=== PATIENT | male | born 1960 | race Caucasian/White ===

== ENCOUNTER → 2017-12-21 16:46 | Outpatient (CLI) | payer OTHER, SELFPAY ==
--- NOTE | 2017-12-21 16:56 | RAD_ITS ---
STUDY: X-RAY - PELVIS AND LEFT HIP REASON FOR EXAM: Chronic pain. TECHNIQUE: Radiological exam, hip, unilateral, with pelvis when performed; 2 or 3 views. COMPARISON: None. FINDINGS: Normal visualized soft tissue structures. Normal bilateral iliac wings, sacroiliac joints and visualized sacrum. Normal bilateral superior and inferior pubic rami. Normal pubic symphysis. Normal bilateral ischial tuberosities. There is advanced left hip arthrosis with marginal osteophytes, joint space loss and subchondral cystic change of the femoral head. RAD/HIP, UNI W/ Pelvis 2-3 Views IMPRESSION: Advanced left hip arthrosis. Electronically Signed: Armando Kramer MD at 8:40 EDT Tel , Service support ,
--- NOTE | 2017-12-21 16:56 | RAD_ITS ---
STUDY: X-RAY - RIGHT KNEE REASON FOR EXAM: Male, 57 years old. Pain TECHNIQUE: 4 view(s) of the knee. COMPARISON: None. FINDINGS: There is moderate osteoarthritis of the knee demonstrated by narrowing of the tricompartments and spurs from the tibial and femoral condyles. There are also spurs from the margins of the patella. There is a small amount of knee joint effusion by the quadriceps and patellar tendons are normal. No fracture RAD/Knee 4 or More Views IMPRESSION: Moderate osteoarthritis of the right knee. No fracture Electronically Signed: Geoffrey Correa, at 4:31 EDT Tel , Service support ,
== END ==
PROVIDERS: Family Provider Family Medicine; PCP Family Medicine; Visit Provider Family Medicine
DX: M25.561 Pain in right knee (principal); M25.552 Pain in left hip
CPT/HCPCS: 73502; 73564

== ENCOUNTER → 2017-12-29 07:30 | Outpatient (CLI) | payer OTHER, SELFPAY ==
[2017-12-29 10:55] LABS: Anion Gap 12 (5-15); BUN 26 mg/dL (7-18); BUN/Creat Ratio 22.4 RATIO (10-20); Calcium,Total 8.9 mg/dL (8.5-10.1); Chloride 107 mmol/L (98-107); Cholesterol 197 mg/dL (200); Creatinine, Serum 1.16 mg/dL (0.70-1.30); EST Glomerular Filtration Rate 69 mL/min (>60); Est Glom Filt Rate - Afr Amer 84 mL/min (>60); Glucose 80 mg/dL (74-106); High Density Lipoprotein 59 mg/dL; PSA,Total - Annual Screen 1.01 ng/mL (0.00-4.00); Potassium 4.2 mmol/L (3.5-5.1); Sodium Level 143 mmol/L (136-145); Triglycerides 85 mg/dL; Very Low Density Lipoprotein 17 mg/dL (5-40)
== END ==
PROVIDERS: Family Provider Family Medicine; PCP Family Medicine; Visit Provider Family Medicine
DX: Z13.1 Encounter for screening for diabetes mellitus (principal); Z13.220 Encounter for screening for lipoid disorders; Z12.5 Encounter for screening for malignant neoplasm of prostate
CPT/HCPCS: 36415; 80048; 80061; 84153; G0103

== ENCOUNTER 2018-04-20 05:26 | Day surgery (SDC) | payer OTHER, SELFPAY ==
[2018-04-04 15:03] VITALS: BP 130/86; PULSE 55; RESP 16; TEMP 36.6; O2SAT 96; BMI 27.8
--- NOTE | 2018-04-04 15:17 | SDCEKG_ITS ---
Test Reason : Blood Pressure : / mmHG Vent. Rate : 054 BPM Atrial Rate : 054 BPM P-R Int : 178 ms QRS Dur : 090 ms QT Int : 448 ms P-R-T Axes : 038 026 033 degrees QTc Int : 424 ms Sinus bradycardia Otherwise normal ECG Confirmed by CHIVO BUTTS, FLORENTINO ([id number]), book or script editor ANN JACKSON ([id number]) on 04/06/2018 1:13:17 PM Referred By: Los Sosa Confirmed By:FLORENTINO WALDRON MD
[2018-04-04 15:46] LABS: Absolute Lymphocyte Count 1.96 X10^3/ul (0.83-4.51); Absolute Neutrophil Count 3.6 X10^3/uL (2.0-7.7); Basophil# 0.06 X10^3/uL; Eosinophil# 0.11 X10^3/uL; Eosinophils% 1.8 % (0-5); Hematocrit 43.9 % (40-54); Hemoglobin 14.6 g/dl (13.0-16.5); Lymphocyte # 1.96 X10^3/ul (4.0); Lymphocyte % 32.6 % (19-41); Mean Corp Hgb Conc 33.3 g/gl (32-36); Mean Corpuscular Hgb 30.4 pg (27.0-32.0); Mean Corpuscular Volume 91.3 fL (80-94); Mean Platelet Vol. 10.5 fl (6.2-12.0); Monocyte# 0.31 X10^3/uL; Monocyte% 5.1 % (0-10); Neutrophil # 3.58 X10^3/uL (2.7-7.7); Neutrophil % 59.5 % (47-70); Platelet Count 185 K/mm3 (150-450); RBC Distribution Width CV 12.8 % (11.6-14.6); RBC Distribution Width SD 42.9 fl (35.1-43.9); Red Blood Count 4.81 M/mm3 (4.6-6.2)
[2018-04-04 15:47] LABS: POSITIVE COUNT NO; POSITIVE DIFFERENTIAL NO; POSITIVE MORPHOLOGY NO
[2018-04-04 16:06] LABS: Anion Gap 6 (5-15); BUN 27 mg/dL (7-18); BUN/Creat Ratio 25.5 RATIO (10-20); Calcium,Total 8.7 mg/dL (8.5-10.1); Chloride 107 mmol/L (98-107); Creatinine, Serum 1.06 mg/dL (0.70-1.30); EST Glomerular Filtration Rate 77 mL/min (>60); Est Glom Filt Rate - Afr Amer 93 mL/min (>60); Estimated Creatinine Clearance 83.86 ml/min; Glucose 77 mg/dL (74-106); Potassium 3.8 mmol/L (3.5-5.1); Sodium Level 137 mmol/L (136-145)
--- NOTE | 2018-04-06 10:14 | PCM.HP.BLA ---
History and Physical DATE OF SURGERY: 04/20/2018 SCHEDULED PROCEDURE: Left Total Hip Arthroplasty HISTORY OF PRESENT ILLNESS: This is a 57-year-old male who has been having ongoing pain in bilateral hips for over 2 years. Patient states the left is worse than the right. Patient states the pain can reach as high as a 6/10. Pain is increased going up and down stairs, walking any amount of distance. Patient does have start up pain and complains of pain in the left groin and thigh. Patient states he has had a difficult time with activities of daily living including housework, shopping, and leisure activities such as hiking. Patient has tried conservative measures consisting of rest, ice, heat, elevation with no relief in symptoms. Patient has been through formal physical therapy and home exercises with no relief in symptoms. Patient has tried oral medications consisting of ibuprofen which states it helps temporarily. Patient currently denies any chest pain, shortness of breath, fevers chills, recent infections. We are obtaining surgical clearance from patient's primary care physician. After failing conservative measures and discussing all treatment options with Dr. Los Sosa, the patient would like to proceed with a left total hip arthroplasty. REVIEW OF SYSTEMS: ROS: Const: Denies change in appetite, fever and weight change. CV: Denies chest pain, heart murmur and irregular heartbeat. Resp: Denies cough, pneumonia, shortness of breath, tuberculosis and wheezing. GI: Denies constipation, diarrhea, heartburn, nausea, rectal itching, bloody stools and vomiting. : Denies incontinence. Musculo: Reports ambulatory dysfunction and trouble walking, but denies leg swelling, pain and weakness. Skin: Denies Raynaud's, history of shingles and tattoo. Neuro: Denies ambulatory dysfunction, dizziness, numbness/tingling and tremor. Psych: Denies anxiety, insomnia and stress. Tino/Lymph: Denies anemia, bleeding/bruising tendency and past transfusion. Reviewed, no changes. PAST MEDICAL HISTORY: Advance Care Plan: No Advance Directives Effective Date: 01/24/2018 PMH: Medical Problems: No Current Problems Accidents: None Surgical Hx: Knee Arthroscopy Rt - (1978) [facility] Anesthesia Complications: None Assistive Devices: Glasses Reviewed, no changes. 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 Personal Habits: Cigarette Use: Never Smoked Cigarettes.Smokeless Tobacco: Never Used Smokeless Tobacco.E-Cigarette Use: Never used.Alcohol: Occasionally.Drug Use: Denies Use.Enjoy Exercising: Daily. Reviewed and updated. VITALS: Ht: 71 Wt: 200lb Wt k.720 BMI: 27.9 BP: 124/80 Pulse: 70 Resp: 16 T: 97.6 T: 36.4C ALLERGIES: No Known Drug Allergy MEDICATIONS: Oxycodone HCL 5 mg 1-2 tab by mouth every 4 hours, Meloxicam 7.5 mg 2 tablets by mouth twice a day with food, Famotidine 20 mg 1 by mouth every day, Promethazine HCL 12.5 mg 1-2 tablets by mouth every 6 hours PRE-OP EXAM: General appearance:NORMAL Other: Eyes: Conjunctivae and lids: NORMAL Pupils: ERR Ears, Nose, Mouth, and Throat: NORMAL Other: Inspection of lips, teeth and gums: NORMAL Other: Neck: Examination of neck: no masses noted. Respiratory: Assessment of respiratory effort: NORMAL Other: Auscultation of lungs: clear to auscultation no wheezes, rhonchi or rales. Cardiovascular: Auscultation of heart: regular rate and rhythm, no murmurs, gallops or rubs. Exam of carotid arteries: NORMAL Other: Gastrointestinal: Exam of abdomen: soft, nontender, nondistended bowel sounds present. PHYSICAL EXAMINATION: Patient does walk with an antalgic gait. Patient does complain of groin pain on range of motion. Range of motion left hip: Flexion 95, internal rotation 10, external rotation 15. Patient has 4/5 hip flexion strength secondary to pain. Sensation intact to light touch. Neurovascularly intact. IMAGING STUDIES: 1. X-rays were obtained that was documented in hospital which did reveal joint space narrowing, subchondral sclerosis, and osteophyte formation consistent with severe osteoarthritis with large subchondral cysts in both the femoral head and acetabulum. There is also flattening of the femoral head. 2. X-rays were obtained at [facility] [place] on April 04, 2018 including one view AP pelvis which does reveal severe osteoarthritis in the left hip with femoral head flattening, complete joint space loss, large subchondral cyst in the femoral head and acetabulum. IMPRESSION: 1. Severe left hip osteoarthritis PLAN: Dr. Los Sosa did discuss and review with the patient all treatment options including surgical versus nonsurgical options. Patient does wish to proceed with the above-stated procedure. Potential risks, benefits, and complications of the procedure were discussed in detail including but not limited to , infection, nerve and blood vessel damage, persistent pain, numbness, tingling, paresthesias, blood clot, pulmonary embolism, and requirement for possible further surgery. The patient expressed full understanding and has no further questions for the doctor. Patient does agree to proceed with the above-stated procedure and has signed the surgery consent form. This dictation was created using voice recognition software. Phonetic and/or grammatical errors may exist.. ___ I have re-examined the patient. There are no clinical changes since date of exam. ___ See progress notes for changes. ___ Dictated on admission Date: Time: Signature:
[2018-04-20 05:47] VITALS: BP 137/91; PULSE 57; RESP 16; TEMP 36.8; O2SAT 97; BMI 27.8
[2018-04-20] MEDS: oxyCODONE HCl Cr 10 MG Tablet PO (06:10)
[2018-04-20] MEDS: Celecoxib 200 MG Capsule 400 MG PO (06:10)
[2018-04-20] MEDS: Acetaminophen 500 MG Tablet 1000 MG PO ×2 (06:10→13:52)
[2018-04-20] MEDS: Lactated Ringers 1,000 ML 999 ML IV ×2 (06:20→08:15)
[2018-04-20] MEDS: Cefazolin 2 GM in 0.9% Normal Saline 100 ML IV (07:08)
--- NOTE | 2018-04-20 07:15 | RAD_ITS ---
STUDY: X-RAY - LEFT HIP REASON FOR EXAM: Male, 57 years old. Left hip replacement. TECHNIQUE: 2 intraoperative fluoroscopic views of the hip. COMPARISON: None. FINDINGS: The patient has undergone left total hip arthroplasty. Following resection of the femoral head and neck, a metal bipolar hip prosthesis was placed. In the first film, the acetabular and initial femoral components are seen to be in normal alignment. In the second image, the head piece of the femoral prosthesis has also been placed in alignment with the acetabular prosthesis. Both the acetabular and femoral components appear well seated. Lucency overlying the hip consistent with the open surgical wound. There is no demonstrated acute fracture. Normal visualized superior and inferior pubic rami and ischial tuberosities. RAD/Hip 1 view with Pelvis IMPRESSION: Intraoperative images of left total hip arthroplasty with placement of metal bipolar hip prosthesis. Electronically Signed: Good Darby MD at 18:54 EST , Service support ,
--- NOTE | 2018-04-20 08:26 | PCM.OPRPT ---
Report of Operation Date of Procedure: 04/20/18 Pre-Operative Diagnosis: Left hip primary osteoarthritis Post-Operative Diagnosis: Left hip primary osteoarthritis Surgery/Procedure Performed:: Left direct anterior total hip replacement Description of Surgical Findings:: Stable hip with equal leg lengths residential life director: Tessy Fabian Type of Anesthesia:: Spinal Anesthesiologist: Tai Ortiz Special Medications: 2 g Ancef, 1 g TXA at incision, 1 g TXA closure, 10 mg Decadron, joint cocktail (5 mg Duramorph, 30 mL of 0.5% Ropivicaine, 1000 units of epinephrine, 30 mg of Toradol) Specimen's removed: bony cuts Estimated Blood Loss (mL): 150 Fluids Replaced: 1000 ml Description of Procedure: Components used: 1. Accolade 2 [place] femoral stem size 8 127? 2. Jaci trident acetabular shell size 60 mm 3. Jaci X3 polyethylene G 4. Stewart Biolox delta 36mm, +2.5mm femoral head Brief history operative indications: 57 yo M who failed conservative measures for their hip osteoarthritis. X-rays were consistent with osteoarthritis including joint space narrowing, osteophyte formation and subchondral cysts. Total hip replacement was discussed with the patient with risks and benefits including but not limited to blood loss, DVTs, PEs, neurovascular damage, dislocation, general risks of anesthesia including loss of life. Patient demonstrated an understanding medical clearance is obtained the patient was consented for surgery. Procedure: On the date of procedure the patient's L hip was marked in the preoperative area. Patient was then taken back to the operating room where anesthesia assumed control of the C-spine and airway and administered anesthetic. Patient was transferred to the operating table and placed in the supine position. The hips were placed at the break of the bed and a sacral bump was placed. The L lower extremity was then prepped out in a sterile fashion using chlorhexidine while the surgeon scrubbed. The PA was vital in the positioning of the patient. Upon reentering the room the L lower extremity was draped in the standard orthopedic fashion and the incision was marked. A timeout was called and everyone agreed upon the side, the site, the procedure be performed, antibody given, and patient's identity. At this time incision was made through skin, subcutaneous tissue, and fat down to fascia. The fascia was then incised and the TFL was retracted laterally. A retractor was placed on the lateral border of the femoral neck. Attention was directed to the inferior portion of the approach and all crossing vessels were identified and appropriately coagulated. A retractor was then placed on the medial portion of the femoral neck. The anterior capsule was then cleared of all soft tissue and then H shaped capsulotomy was made. The retractors were then placed inside the capsule. The femoral neck was identified and a cleanup cut was made. At this time a power corkscrew was used to remove the femoral head. Attention was then turned toward the acetabulum where the soft tissues were appropriately retracted and the acetabulum was sequentially reamed to 60 mm. A 60 mm cup was then selected and impacted into place. Acetabular liner was impacted into place and locking mechanism was verified. The position of the acetabular cup was then verified under live fluoroscopy. Attention was then turned to the femur. Soft tissue releases on the medial and lateral femoral neck were appropriately done, the leg was externally rotated and lateralized. A Ceja retractor was placed medially and proximally to the greater trochanter this allowed appropriate visualization and exposure of the femoral canal. Rongeour was then used to remove excess lateral bone. A canal finder and entry broach were used to open the proximal canal. Once we verified we were down the femoral canal we subsequently broached up to a size 8 femur. The appropriate neck was placed in the previously selected head was trialed with a 2.5 mm neck. Traction was pulled and the hip was reduced with internal rotation. Once it was appropriately reduced and stability was checked. There was minimal shuck, equal leg lengths and appropriate stability with hyperextension and external rotation as well as with 90? flexion and internal rotation. Fluoroscopy was then also used to verify the position of the components and leg lengths using the contralateral side for comparison. The trial components were then dislocated the proximal femur was again exposed and the components were removed from the wound. The final components were verified and opened. The wound was copiously irrigated out with normal saline. The acetabulum was checked for any residual debris. The final components were placed and impacted. Traction and internal rotation were again used to reduce the hip. After adequate reduction the hip remained stable with appropriate leg lengths. The final components were once again checked with live fluoroscopy and were found to be satisfactory. The wound was then copiously irrigated with normal saline once more, and hemostasis was obtained. Closure was then done using #1 Vicryl runner to close the fascia. A 2-0 vicryl interuppted sutures were used to close the subcutaneous skin. A 3-0 Monocryl and Steri-Strips were used for final skin closure. A Silverlon dressing was placed. Patient was awakened by anesthesia and [facility] to [facility] Patient was then transferred to the PACU for recovery. Postoperative plan: Patient will get 24 hours postop antibiotics. Patient will get in-house physical therapy and will be weight-bear as tolerated. Patient will follow up in office in 2 weeks for a wound check and x-rays. Grafts/Implants Used: accolade 2, trident 2 - Complications none - Admit VTE Documentation VTE Present on Admission: No VTE Mechan Device Prophylaxis: SCD's, Thigh High MASON Hose VTE Pharm Prophylaxis ordered?: Yes
--- NOTE | 2018-04-20 08:29 | OP.PCM_ITS ---
Report of Operation Date of Procedure: 04/20/18 Pre-Operative Diagnosis: Left hip primary osteoarthritis Post-Operative Diagnosis: Left hip primary osteoarthritis Surgery/Procedure Performed:: Left direct anterior total hip replacement Description of Surgical Findings:: Stable hip with equal leg lengths ela teacher: Tessy Fabian Type of Anesthesia:: Spinal Anesthesiologist: Tai Ortiz Special Medications: 2 g Ancef, 1 g TXA at incision, 1 g TXA closure, 10 mg Decadron, joint cocktail (5 mg Duramorph, 30 mL of 0.5% Ropivicaine, 1000 units of epinephrine, 30 mg of Toradol) Specimen's removed: bony cuts Estimated Blood Loss (mL): 150 Fluids Replaced: 1000 ml Description of Procedure: Components used: 1. Accolade 2 [place] femoral stem size 8 127? 2. Jaci trident acetabular shell size 60 mm 3. Jaci X3 polyethylene G 4. [place] Biolox delta 36mm, +2.5mm femoral head Brief history operative indications: 57 yo M who failed conservative measures for their hip osteoarthritis. X-rays were consistent with osteoarthritis including joint space narrowing, osteophyte formation and subchondral cysts. Total hip replacement was discussed with the patient with risks and benefits including but not limited to blood loss, DVTs, PEs, neurovascular damage, dislocation, general risks of anesthesia including loss of life. Patient demonstrated an understanding medical clearance is obtained the patient was consented for surgery. Procedure: On the date of procedure the patient's L hip was marked in the preoperative area. Patient was then taken back to the operating room where anesthesia assumed control of the C-spine and airway and administered anesthetic. Patient was transferred to the operating table and placed in the supine position. The hips were placed at the break of the bed and a sacral bump was placed. The L lower extremity was then prepped out in a sterile fashion using chlorhexidine while the surgeon scrubbed. The PA was vital in the positioning of the patient. Upon reentering the room the L lower extremity was draped in the standard orthopedic fashion and the incision was marked. A timeout was called and everyone agreed upon the side, the site, the procedure be performed, antibody given, and patient's identity. At this time incision was made through skin, subcutaneous tissue, and fat down to fascia. The fascia was then incised and the TFL was retracted laterally. A retractor was placed on the lateral border of the femoral neck. Attention was directed to the inferior portion of the approach and all crossing vessels were identified and appropriately coagulated. A retractor was then placed on the medial portion of the femoral neck. The anterior capsule was then cleared of all soft tissue and then H shaped capsulotomy was made. The retractors were then placed inside the capsule. The femoral neck was identified and a cleanup cut was made. At this time a power corkscrew was used to remove the femoral head. Attention was then turned toward the acetabulum where the soft tissues were appropriately retracted and the acetabulum was sequentially reamed to 60 mm. A 60 mm cup was then selected and impacted into place. Acetabular liner was impacted into place and locking mechanism was verified. The position of the acetabular cup was then verified under live fluoroscopy. Attention was then turned to the femur. Soft tissue releases on the medial and lateral femoral neck were appropriately done, the leg was externally rotated and lateralized. A Ceja retractor was placed medially and proximally to the greater trochanter this allowed appropriate visualization and exposure of the femoral canal. Rongeour was then used to remove excess lateral bone. A canal finder and entry broach were used to open the proximal canal. Once we verified we were down the femoral canal we subsequently broached up to a size 8 femur. The appropriate neck was placed in the previously selected head was trialed with a 2.5 mm neck. Traction was pulled and the hip was reduced with internal rotation. Once it was appropriately reduced and stability was checked. There was minimal shuck, equal leg lengths and appropriate stability with hyperextension and external rotation as well as with 90? flexion and internal rotation. Fluoroscopy was then also used to verify the position of the components and leg lengths using the contralateral side for comparison. The trial components were then dislocated the proximal femur was again exposed and the components were removed from the wound. The final components were verified and opened. The wound was copiously irrigated out with normal saline. The acetabulum was checked for any residual debris. The final components were placed and impacted. Traction and internal rotation were again used to reduce the hip. After adequate reduction the hip remained stable with appropriate leg lengths. The final components were once again checked with live fluoroscopy and were found to be satisfactory. The wound was then copiously irrigated with normal saline once more, and hemostasis was obtained. Closure was then done using #1 Vicryl runner to close the fascia. A 2-0 vicryl interuppted sutures were used to close the subcutaneous skin. A 3-0 Monocryl and Steri-Strips were used for final skin closure. A Silverlon dressing was placed. Patient was awakened by anesthesia and transferred to the [facility]. Patient was then transferred to the PACU for recovery. Postoperative plan: Patient will get 24 hours postop antibiotics. Patient will get in-house physical therapy and will be weight-bear as tolerated. Patient will follow up i n office in 2 weeks for a wound check and x-rays. Grafts/Implants Used: accolade 2, trident 2 - Complications none - Admit VTE Documentation VTE Present on Admission: No VTE Mechan Device Prophylaxis: SCD's, Thigh High MASON Hose VTE Pharm Prophylaxis ordered?: Yes
[2018-04-20 08:56] VITALS: BP 102/56; BP 137/91; PULSE 47; RESP 14; TEMP 36.1; O2SAT 96
[2018-04-20 09:00] VITALS: BP 102/58; BP 137/91; PULSE 45; RESP 16; O2SAT 95
--- NOTE | 2018-04-20 09:12 | RAD_ITS ---
STUDY: X-RAY - LEFT HIP REASON FOR EXAM: Male, 57 years old. Anterior left total hip replacement. TECHNIQUE: 2 views of the hip. COMPARISON: Comparison is made with prior examination done earlier in the day. FINDINGS: The patient is status post left total hip replacement. There is good alignment. Postoperative soft tissue changes. RAD/Hip Min 2 Views (Portable) IMPRESSION: Status post left total hip replacement. There is good alignment. Postoperative soft tissue changes. Electronically Signed: Surjit Duffy MD at 10:32 EST Tel [phone], Service support ,
[2018-04-20] MEDS: Scopolamine 1mg/72hr Patch 1 PATCH TD (09:13)
[2018-04-20 09:15] VITALS: BP 120/65; BP 137/91; PULSE 45; RESP 16; O2SAT 97
[2018-04-20 09:32] VITALS: BP 120/69; BP 137/91; PULSE 44; RESP 18; TEMP 35.9; O2SAT 100
[2018-04-20] MEDS: Lactated Ringers 1,000 ML 125 ML IV (10:00)
[2018-04-20] MEDS: Cefazolin 1 GM/50 ML BAG IV (13:53)
[2018-04-20 14:30] VITALS: BP 111/70; BP 137/91; PULSE 50; RESP 16; TEMP 36.3; O2SAT 99
== END 2018-04-20 14:30 | disposition home or self-care (01) ==
LOC: ACINP 05:40 → SDC 04-21 07:50
PROVIDERS: Family Provider Family Medicine; PCP Family Medicine; Referring Provider Specialist; Visit Provider Specialist
PROC: (CPT 27284; principal; 2018-04-20 06:50)
DX: M16.12 Unilateral primary osteoarthritis, left hip (principal); Z85.828 Personal history of other malignant neoplasm of skin
CPT/HCPCS: 27130; 73501; 73502; 76000; 80048; 85025; 87081; 93005; 97161; C1776; J7120; J2405

== ENCOUNTER → 2020-02-28 09:21 | Outpatient (CLI) | payer OTHER, SELFPAY ==
[2020-02-28 10:29] LABS: Anion Gap 5 (5-15); BUN 17 mg/dL (7-18); BUN/Creat Ratio 16.5 RATIO (10-20); Calcium,Total 8.8 mg/dL (8.5-10.1); Chloride 102 mmol/L (98-107); Cholesterol 178 mg/dL (200); Creatinine, Serum 1.03 mg/dL (0.70-1.30); EST Glomerular Filtration Rate 79 mL/min (>60); Est Glom Filt Rate - Afr Amer 96 mL/min (>60); Glucose 78 mg/dL (74-106); High Density Lipoprotein 73 mg/dL; PSA,Total - Annual Screen 1.06 ng/mL (0.00-4.00); Potassium 4.2 mmol/L (3.5-5.1); Sodium Level 135 mmol/L (136-145); Triglycerides 45 mg/dL; Very Low Density Lipoprotein 9 mg/dL (5-40)
== END ==
PROVIDERS: PCP Family Medicine; Referring Provider Family Medicine; Visit Provider Family Medicine
DX: Z13.1 Encounter for screening for diabetes mellitus (principal); Z13.220 Encounter for screening for lipoid disorders; Z12.5 Encounter for screening for malignant neoplasm of prostate
CPT/HCPCS: 36415; 80048; 80061; 84153; G0103

== ENCOUNTER 2020-08-02 14:00 | Outpatient (RCR) | payer OTHER, SELFPAY ==
[2020-08-02] MEDS: COVID-19 VACC, MRNA(PFIZER)/PF 30 MCG/0.3 ML SYRINGE IM (07:35)
[2020-08-23] MEDS: COVID-19 VACC, MRNA(PFIZER)/PF 30 MCG/0.3 ML SYRINGE IM (07:23)
== END 2020-08-02 23:59 ==
LOC: IMMUN 14:00
PROVIDERS: PCP Family Medicine; Visit Provider Family Medicine
DX: Z23 Encounter for immunization (principal)
CPT/HCPCS: 0001A; 0002A; 91300

== ENCOUNTER → 2021-03-03 09:28 | Outpatient (CLI) | payer OTHER, SELFPAY ==
[2021-03-03 11:17] LABS: Anion Gap 11 (5-15); BUN 17 mg/dL (7-18); BUN/Creat Ratio 13.5 RATIO (10-20); Chloride 103 mmol/L (98-107); Cholesterol 203 mg/dL (200); Creatinine, Serum 1.26 mg/dL (0.70-1.30); EST Glomerular Filtration Rate 62 mL/min (>60); Est Glom Filt Rate - Afr Amer 75 mL/min (>60); Glucose 82 mg/dL (74-106); High Density Lipoprotein 73 mg/dL; PSA,Total - Annual Screen 1.17 ng/mL (0.00-4.00); Potassium 4.2 mmol/L (3.5-5.1); Sodium Level 138 mmol/L (136-145); Triglycerides 41 mg/dL; Very Low Density Lipoprotein 8 mg/dL (5-40)
== END ==
PROVIDERS: PCP Family Medicine; Visit Provider Family Medicine
DX: Z12.5 Encounter for screening for malignant neoplasm of prostate (principal); Z13.220 Encounter for screening for lipoid disorders; Z13.1 Encounter for screening for diabetes mellitus
CPT/HCPCS: 36415; 80048; 80061; 84153; G0103

== ENCOUNTER 2021-08-06 15:27 | Outpatient (CLI) | payer OTHER, SELFPAY ==
--- NOTE | 2021-08-06 15:31 | RAD_ITS ---
STUDY: X-RAY - PELVIS AND RIGHT HIP REASON FOR EXAM: Male, 61 years old. HIP PAIN TECHNIQUE: 3 views of the pelvis and hip. COMPARISON: None. FINDINGS: There is a non-specific bowel gas pattern. Normal visualized soft tissue structures. Normal bilateral iliac wings, sacroiliac joints and visualized sacrum. Normal bilateral superior and inferior pubic rami. Normal pubic symphysis. Normal bilateral ischial tuberosities. Decrease from her neck offset predisposing to cam-type femoral acetabular impingement. There is cortical sclerosis with sub-cortical cyst formation of the acetabulum. There is moderate articular joint space narrowing of the hip. 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 Electronically Signed: Jordi Corbin MD at 16:17 EDT ,
--- NOTE | 2021-08-06 15:31 | RAD_ITS ---
EXAM: XR RIGHT KNEE, 3 VIEWS CLINICAL INDICATION: KNEE PAIN TECHNIQUE: Three views of the right knee. This report was created using [employer] report generation technology. COMPARISON: None. FINDINGS: BONES/JOINTS: Moderate tricompartmental osteoarthrosis. No significant joint effusion. Lateral subluxation of the tibial plateau relative to the distal femur on one view. No acute fracture. No sclerotic or destructive changes observed. SOFT TISSUES: Unremarkable. No soft tissue swelling or gas. No radiopaque foreign body. RAD/Knee 4 or More Views IMPRESSION: No acute findings in the right knee. Severe osteoarthrosis at the medial femorotibial compartment Electronically Signed: Gavin Dempsey MD at 0:03 EDT ,
== END 2021-08-06 23:59 | disposition home or self-care (01) ==
LOC: MTRAD 15:29
PROVIDERS: PCP Family Medicine; Referring Provider Family Medicine; Visit Provider Family Medicine
DX: M25.561 Pain in right knee (principal); M25.551 Pain in right hip
CPT/HCPCS: 73502; 73564

== ENCOUNTER → 2022-01-29 | Outpatient (CLI) | payer OTHER, SELFPAY ==
[2022-01-29 15:04] LABS: Absolute Lymphocyte Count 2.07 X10^3/uL (0.83-4.51); Absolute Neutrophil Count 3.5 X10^3/uL (2.0-7.7); Basophil# 0.09 X10^3/uL; Basophil% 1.4 % (0-1); Eosinophil# 0.21 X10^3/uL; Eosinophils% 3.3 % (0-5); Hematocrit 42.2 % (40-54); Hemoglobin 14.4 g/dL (13.0-16.5); Lymphocyte # 2.07 X10^3/ul (0.83-4.51); Lymphocyte % 32.7 % (19-41); Mean Corp Hgb Conc 34.1 g/dL (32-36); Mean Corpuscular Hgb 31.3 pg (27.0-32.0); Mean Corpuscular Volume 91.7 fL (80-94); Mean Platelet Vol. 10.9 fl (6.2-12.0); Monocyte% 7.9 % (0-10); NRBC Flagged by Analyzer 0 % (0-5); Neutrophil # 3.45 X10^3/uL (2.7-7.7); Neutrophil % 54.5 % (47-70); Platelet Count 231 K/mm3 (150-450); RBC Distribution Width CV 12.7 % (11.6-14.6); RBC Distribution Width SD 42.5 fl (35.1-43.9); White Blood Count 6.3 K/mm3 (4.4-11.0)
[2022-01-29 15:18] LABS: Albumin, Serum 3.7 g/dL (3.2-5.0); Anion Gap 9 (5-15); BUN 22 mg/dL (7-18); BUN/Creat Ratio 19.8 RATIO (10-20); Calcium,Total 9.1 mg/dL (8.5-10.1); Chloride 105 mmol/L (98-107); Creatinine, Serum 1.11 mg/dL (0.70-1.30); EST Glomerular Filtration Rate 72 mL/min (>60); Est Glom Filt Rate - Afr Amer 87 mL/min (>60); Glucose 90 mg/dL (74-106); Potassium 4.2 mmol/L (3.5-5.1); Sodium Level 140 mmol/L (136-145)
== END | disposition home or self-care (01) ==
LOC: MTLAB 12:54
PROVIDERS: PCP Family Medicine; Referring Provider Physician Assistant Surgical; Visit Provider Physician Assistant Surgical
DX: Z01.818 Encounter for other preprocedural examination (principal)
CPT/HCPCS: 36415; 80048; 82040; 85025

== ENCOUNTER → 2024-03-01 | Outpatient (CLI) | payer OTHER, SELFPAY ==
[2024-03-01 10:15] LABS: Absolute Neutrophil Count 2.7 X10^3/uL (2.0-7.7); Basophil# 0.07 X10^3/uL; Basophil% 1.3 % (0-1); Eosinophil# 0.24 X10^3/uL; Eosinophils% 4.3 % (0-5); Hematocrit 46.5 % (40-54); Hemoglobin 15.7 g/dL (13.0-16.5); Lymphocyte % 36.2 % (19-41); Mean Corp Hgb Conc 33.8 g/dL (32-36); Mean Corpuscular Hgb 30.5 pg (27.0-32.0); Mean Corpuscular Volume 90.3 fL (80-94); Mean Platelet Vol. 10.8 fl (6.2-12.0); Monocyte# 0.46 X10^3/uL; Monocyte% 8.3 % (0-10); NRBC Flagged by Analyzer 0 % (0-5); Neutrophil # 2.74 X10^3/uL (2.7-7.7); Neutrophil % 49.7 % (47-70); Platelet Count 216 K/mm3 (150-450); RBC Distribution Width CV 12.2 % (11.6-14.6); Red Blood Count 5.15 M/mm3 (4.6-6.2); White Blood Count 5.5 K/mm3 (4.4-11.0)
[2024-03-01 10:39] LABS: Anion Gap 8 (5-15); BUN 16 mg/dL (7-18); BUN/Creat Ratio 13.2 RATIO (10-20); Calcium,Total 9.6 mg/dL (8.5-10.1); Chloride 104 mmol/L (98-107); Creatinine, Serum 1.21 mg/dL (0.70-1.30); EST Glomerular Filtration Rate 65 mL/min (>60); Est Glom Filt Rate - Afr Amer 78 mL/min (>60); Glucose 96 mg/dL (74-106); PSA,Total - Annual Screen 1.63 ng/mL (0.00-4.00); Potassium 4.3 mmol/L (3.5-5.1); Sodium Level 136 mmol/L (136-145)
== END | disposition home or self-care (01) ==
PROVIDERS: PCP Family Medicine; Visit Provider Family Medicine
DX: Z00.00 Encounter for general adult medical examination without abnormal findings (principal); Z12.5 Encounter for screening for malignant neoplasm of prostate; Z13.1 Encounter for screening for diabetes mellitus
CPT/HCPCS: 36415; 80048; 84153; 85025; G0103

== ENCOUNTER → 2025-03-08 | Outpatient (CLI) | payer OTHER, SELFPAY ==
[2025-03-08 12:32] LABS: Anion Gap 10 (5-15); BUN 18 mg/dL (4-19); BUN/Creat Ratio 16.8 RATIO (10-20); Calcium,Total 9.2 mg/dL (7.6-11.0); Carbon Dioxide 24.3 mmol/L (21.0-32.0); Chloride 103 mmol/L (98-108); Glucose 95 mg/dL (70-99); PSA,Total - Annual Screen 1.41 ng/mL (0.02-4.00); Potassium 4.8 mmol/L (3.3-5.1)
== END | disposition home or self-care (01) ==
LOC: MFPLAB 10:38
PROVIDERS: PCP Family Medicine; Visit Provider Family Medicine
DX: Z12.5 Encounter for screening for malignant neoplasm of prostate (principal); Z13.1 Encounter for screening for diabetes mellitus
CPT/HCPCS: 36415; 80048; 84153; G0103